=== PATIENT | female | born 1990 | race Hispanic/Latino ===

== ENCOUNTER 2022-09-01 07:38 | Day surgery (SDC) | payer OTHER ==
[2022-08-28 13:55] LABS: BASOPHILS % (AUTO) 0.2 % (0.0-5.0); EOSINOPHILS % (AUTO) 1.4 % (0.0-8.0); HEMATOCRIT 43.4 % (36-48); LYMPHOCYTES % (AUTO) 22.8 % (21.0-51.0); MEAN CORPUSCULAR HGB CONC 32.9 g/dL (32.0-36.0); MEAN CORPUSCULAR VOLUME 84.9 fL (79-99); MONOCYTES % (AUTO) 5.4 % (3.0-13.0); PLATELET COUNT (AUTO) 338 K/uL (130-400); RED BLOOD CELL COUNT(AUTO) 5.11 MIL/uL (4.00-5.50); RED CELL DISTRIBUTION WIDTH 13.2 % (11.0-15.5); WHITE BLOOD COUNT (AUTO) 8.6 K/uL (4.8-10.8)
[2022-08-28 14:01] LABS: APPEARANCE,URINE CLEAR (CLEAR); BILIRUBIN,URINE NEGATIVE (NEGATIVE); COLOR,URINE LIGHT-YELLOW (YELLOW); GLUCOSE, URINE (UA) NEGATIVE (NEGATIVE); KETONES,URINE 60 mg/dL (NEGATIVE); LEUKOCYTE ESTERASE ,URINE NEGATIVE Leu/uL (NEGATIVE); NITRATE,URINE NEGATIVE (NEGATIVE); OCCULT BLOOD,URINE NEGATIVE (NEGATIVE); PH,URINE 5.5 (5.0-8.0); PROTEIN,URINE NEGATIVE (NEGATIVE); UROBILINOGEN,URINE 0.2 mg/dL (0.2-1.0)
[2022-08-28 14:04] LABS: BACTERIA,URINE RARE /HPF (None Seen); MUCUS,URINE RARE LPF (None Seen); SQUAMOUS EPITHELIAL CELL,UR MOD /HPF (0-2)
[2022-08-28 14:11] LABS: ALBUMIN 3.5 g/dL (3.5-5.0); CREATININE 0.8 mg/dL (0.5-1.5); POTASSIUM 4.3 mmol/L (3.5-5.1); TOTAL PROTEIN, SERUM 7.4 g/dL (6.0-8.3)
[2022-08-28 14:13] VITALS: BP 134/86
[2022-09-01] VITALS (18 sets, daily range): BP systolic 92–129; BP diastolic 53–78
[~2022-09-01] VITALS: Ht 149.9 cm; Wt 86.8 kg
[~2022-09-01 07:38] MED LIST: SEMA1PEN3 SQ
[2022-09-01] MEDS ORDERED: 0.9%NACL 1000ML 1,000 ML IV ONE (07:46)
[2022-09-01] MEDS ORDERED: CEFAZOLIN SODIUM 1 GM VIAL ONE (07:46)
[2022-09-01] MEDS ORDERED: PROPOFOL 10 MG/ML 20ML VIAL IV ONE (08:25)
[2022-09-01] MEDS ORDERED: SUCCINYLCHOLINE 200MG/10ML SYR ONE (08:25)
[2022-09-01] MEDS ORDERED: GLYCOPYRROLATE 1 MG/5 ML SYRINGE ONE (08:25)
[2022-09-01] MEDS ORDERED: MIDAZOLAM HCL 1 MG/ML 2ML VIAL ONE (08:25)
[2022-09-01] MEDS ORDERED: LIDOCAINE PF 100MG/5ML (2%) SYRINGE 5ML ONE (08:25)
[2022-09-01] MEDS ORDERED: ONDANSETRON 4MG INJ ONE (08:25)
[2022-09-01] MEDS ORDERED: DEXAMETHASONE SOD PHOSPHATE 10MG/ML 1ML VIAL ONE (08:25)
[2022-09-01] MEDS ORDERED: NEOSTIGMINE 5MG/5ML SYR IV ONE (08:25)
[2022-09-01] MEDS ORDERED: FENTANYL CITRATE PF 50 MCG/1 ML 2ML VIAL ONE (08:26)
[2022-09-01] MEDS ORDERED: ROCURONIUM 10MG/1ML SYR 10 MG/ML ML ONE (08:26)
[2022-09-01] MEDS ORDERED: BUPIVACAINE/PF 0.5% 30ML VIAL INJ ONE (08:56)
[2022-09-01] MEDS ORDERED: CEFAZOLIN SODIUM 2 GM VIAL IVPB ONE (09:05)
[2022-09-01] MEDS ORDERED: KETOROLAC 30MG VIAL (30MG/ML) ONE (09:42)
[2022-09-01] MEDS ORDERED: MEPERIDINE-PF 25 MG/ML SYG ONE ×3 (10:53→11:36)
== END 2022-09-01 12:45 | disposition home or self-care (01) ==
LOC: DAH 07:38
PROVIDERS: ATTEND Student in an Organized Health Care Education/Training Program
DX: K43.6 Other and unspecified ventral hernia with obstruction, without gangrene (principal); K42.9 Umbilical hernia without obstruction or gangrene; E66.01 Morbid (severe) obesity due to excess calories; Z79.899 Other long term (current) drug therapy; Z87.891 Personal history of nicotine dependence; Z20.822 Contact with and (suspected) exposure to COVID-19; Z98.51 Tubal ligation status; Z68.38 Body mass index [BMI] 38.0-38.9, adult
CPT/HCPCS: 80053; 84703; 85025; 87426; 81001; 36415; 49592; 82948 ×2; 81025; A6260; A4663; J7030 ×2; C1781; J3010; J0690 ×2; J0330; J3490 ×2; J1100; J2710; J2001; J2250; J2704; J2405; J1885; J2175 ×3; G0168; A4649; A4215; A4223; A4222; A4221